=== PATIENT | male | born 1975 ===

== ENCOUNTER 2024-12-27 10:18 | Outpatient (AMB) | payer OTHER, SELFPAY ==
--- NOTE | 2024-12-27 10:48 | A.OFFVIS_ITS ---
VS Expanded 12/27/24 18:13 Height 4 ft 11 in Weight 100 lb 1.438 oz BMI 20.2 Intake Visit Reasons: Gastronomy tube Allergies No Known Allergies Allergy (Verified 12/28/24 13:14) Medication List - Last Reconciled 12/28/[address], LDN magnesium hydroxide (Milk of Magnesia) 30 mL feeding tube DAILY PRN Nutrition Presentation Details: Pt presents for MNT for Gtube nutritional intake assessment, concerns of chronic constipation Pt presents with sisterBerkley and niece (sister's daughter). Pt lives with them and with Pt's mother. Pt is non verbal, non ambulatory, has infantile cerebral palsy and is NPO on nutrition feeds via Gtube since 2018 d/t dysphagia. Pt's family are concerned regarding Pt's chronic constipation. Currently Pt is on Fiber Source HN 1.2 , 250ml 4x/day by bolus feeding. (Previously was on Jevity 1.2) Family reports Pt gets 8- 16 oz of additional water throughout the day) and may provide 4 oz of yogurt via Gtube ([employer]) Fam reports providing milk of magnesia 2-4 tbsp when Pt is goes 4 days without BM. Last BM on Wednesday. Fam reports Pt is currently on no meds, vitamins Pt current Ht : 59 wt: 45.4 kg No labs available at the time of this appt CURRENT FORMULA PROVIDES: 1200 calories, 15 g fiber, 54 g protein, 1300 ml water (from feeding+ additional water) Diet Assmnt Details: BS Monitoring Most Recent Diabetes Results: No Data to Display Assessment Assessment details: Not meeting estimated water needs Nutrition Needs Calculation Weight: 100 lb Estimated kcal needs (kcal/day): 1,130 (25 kcal/kg BW) Estimated protein needs (gm/day): 45 (45- 54 g/day or 1-1.2 g/kg BW) Estimated fluid needs (mls/day): 2,000 (as per Brenda Segar method) [facility] Medical History (Updated 12/28/24 @ 13:[address], LDN) Dysphagia Infantile cerebral palsy Seizure Cardiomegaly Chronic constipation Assessment & Plan Assessment & Plan (1) Feeding by G-tube: Code(s): Z93.1 - Gastrostomy status Category: Medical Plan: Pt with constipation. (2) Infantile cerebral palsy: Code(s): G80.9 - Cerebral palsy, unspecified Category: Medical (3) Chronic constipation: Code(s): K59.09 - Other constipation Category: Medical Plan Pt on feedings via Gtube with chronic constipation. Current formula provides 15 g of fiber/day and Pt is getting approximately 1300ml of water per day from feedings and additional water. Pt will benefit from increasing water by 700 ml of water per day to meet recommended water as per Brenda rowley method Patient Instructions: Recommendation: Continue FIber Source HN 1.2 , 250 ml by bolus feeding 4 times a day WATER: Flush feeding tube with 2 oz of water before and after each feeding Provide 24 oz of additional fluid throughout the day as follow (mix 4 oz of prune juice with 4 oz of water twice a day (total of 16 oz fluid) and and additional 6-8 oz of water (4 oz of kefir yogurt with 4 oz of water ( liquid yogurt, plain, no fruits/chunks,) via Gtube, remember to flush with water before and after yogurt via Gtube only feeding PCP: please monitor for nutrition labs: micronutrients: Zinc, selenium, thiamin, vitamin A, vitamin C, vitamin D, vitamin b12, electrolytes Coding Level of Care Code Nutr Indiv Intake (69876) Diagnoses Feeding by G-tube Z93.1 Infantile cerebral palsy G80.9 Chronic constipation K59.09 Time Spent (min) 40
--- OUTSIDE RECORDS SUMMARY | 2024-12-27 11:38 | XMS_ITS | Clinical Summary ---
Author Organization [address] Address [address] [place] [phone] Phone Care Team Providers Care Spot Cleaner Name Role Phone Raul Roberto MD Primary Care Provider [phone] [phone] Allergies No known active allergies Medications polyethylene glycol (MIRALAX) 17 gram packet Take 17 g by mouth daily. 4 Active incontinence pad, liner, disp pad INCONTINENCE SUPPLY DISPOSABLE (DISPOSABLE UNDERPADS 30 X36 ) MISC To use for incontience #8 times daily Dx:Patient Active Problem List: Infantile cerebral palsy ([facility]) [G80.9] Urinary incontinence [R32] Seizures ([facility]) [R56.9] Gastrostomy tube in place ([facility]) [Z93.1] 3 Active cefuroxime (CEFTIN) 500 mg tablet Take 1 tablet (500 mg total) by mouth 2 (two) times a day. 5 Active bisacodyL (DULCOLAX) 5 mg EC tablet Take 2 tablets by mouth right before beginning bowel prep. See instructions provided by the office 2 tablet 5 Active polyethylene glycol (Golytely) 236-22.74-6.74 -5.86 gram solution Take 4L by mouth once for one dose. May substitue any PEG. Starting today administered via G-tube, 8oz glasses at your own pace until you complete the gallon to help with constipation. 4000 mL 5 Active lactose-reduced food with fibr (Jevity 1.2 Campbell) 0.06 gram-1.2 kcal/mL liquidIndicatio ns:Dysphagia, unspecified type,Infantile cerebral palsy ([facility] V24, [facility] V28),Gastrostom y tube in place ([facility] V24, [facility] V28),Seizures ([facility] V24, [facility] V28) Jentive 1.2 Campbell Via Gtube8 oz by Per G Tube route 5 times daily. Dx: G80.9, Z93.1, #3 cases per month / indefinite use Wt 90 lbs. Ht 51 5 Active lactulose (CHRONULAC) solution Take 30 mL (20 g total) via g-tube 2 (two) times a day. 5400 mL 5 025 Active Problems Problem Noted Date Diagnosed Date Cardiomegaly 04/14/2023 Overview (04/17/2024): ON XRAY Gastrostomy tube in place [place] [place] [facility] 05/06/2018 Overview (04/17/2024): Gastrostomy tube placed surgically at the [facility] 03/18/2018. Assessment & Plan (09/28/2024 2:49 PM EDT): Emergent referral to nutrition services placed to help with feeding with the G- tube. Orders: Ambulatory referral to Nutrition Services; Future Seizures ([facility] V24, [facility] V28) 03/08/2018 Overview (04/17/2024): EEG 02/2018 at [facility] Abnormal TSH 07/23/2015 Constipation 07/13/2009 Overview (04/17/2024): IMO update Assessment & Plan (09/28/2024 2:49 PM EDT): Up-to-date with his follow-up with GI. Continue lactulose. Urinary incontinence 03/07/2007 Dysphagia 11/06/2005 Overview (04/17/2024): 07/27 silent aspiration. 12/29/2018: barium swallow---trace silent aspiration. Infantile cerebral palsy (CMS/[facility] V24, CMS/[facility] V 28) 06/09/2005 Assessment & Plan (09/28/2024 2:49 PM EDT): I have referred the patient to neurology. Advised patient's sister to keep appointment. Orders: Ambulatory referral to Neurology; Future Encounters Date Type Department Care Team Description 12/25/2024 [facility] [address] [place], [place] [address] [place] [address] Raul Roberto MD Fitting for DME 12/08/2024 [facility] [address] [place], [place] [address] [address] Raul Roberto MD DME Request ([place] ) 11/17/2024 [facility] [place] [address] Raul Roberto MD Fitting for DME ([place] / DME REQUEST previous 08-23-24 expires 09-05-25) 11/13/2024 [facility] [address] [place], [place] [address] [place] [address] Raul Roberto MD Forms/questionnaires (Clinical Team Report) 11/07/2024 [facility] [place] [address] Raul Roberto MD Referral 11/03/2024 Telephone [facility] [place] [address] Raul Roberto MD Fitting for DME 10/31/2024 2:00 PM EDT Consult General Surgery - [place] [address] [place] [address] Mo Dunbar D, DO Leg mass, right 10/25/2024 12:47 PM EDT - 10/25/2024 11:59 PM EDT Hospital Encounter Ultrasound - [facility] [address] [place], [place] [phone] Localized swelling, mass, or lump of right lower extremity Discharge Disposition: Home or Self Care 10/17/2024 Telephone Gastroenterology - [place] [address] [place] [address] Didi Valencia PA 10/17/2024 Telephone Internal Medicine - [facility] [address] [place], [place] [phone] Raul Roberto MD Referral 10/16/2024 11:26 AM EDT - 10/16/2024 11:59 PM EDT Hospital Encounter Xray - [facility] [address] [place], [place] [phone] Constipation, unspecified constipation type Discharge Disposition: Home or Self Care 10/16/2024 Telephone Gastroenterology - [place] [address] [place] [address] Brandi Dale, [place] provider call back 10/04/2024 Telephone Internal Medicine - [facility] [address] [place], [place] [phone] Raul Roberto MD 10/04/2024 Telephone Internal Medicine - [facility] [address] [place], [place] [phone] Raul Roberto MD Referral (Returning call to [place]) 10/02/2024 Telephone Internal Medicine - [facility] [address] [place], [place] [phone] Raul Roberto MD Referral 10/02/2024 Telephone Internal Medicine - [facility] [address] [place], [place] [phone] Raul Roberto MD Fitting for DME 09/28/2024 2:15 PM EDT Office Visit Internal Medicine - [facility] [address] [facility] [place] [phone] Raul Roberto MD Infantile cerebral palsy (CMS/HCC V24, CMS/HCC V28) (Primary Dx); Gastrostomy tube in place (CMS/HCC V24, CMS/HCC V28); Constipation, unspecified constipation type; Subclinical hypothyroidism; Localized swelling, mass, or lump of right lower extremity 09/26/2024 9:20 AM EDT Consult Gastroenterology - [place] [address] [place] [address] Brandi Dale NP Chronic idiopathic constipation (Primary Dx); Colonoscopy refused from Last 3 Months Immunizations Name Administration Dates Next Due H1N1 Inj Preservative Free 09/20/2009 Influenza Quadravalent, MDCK , 0.5ml, with preservative (Flucelvax) 6mo and older 05/14/2017 Influenza trivalent, with pr eservative (Fluzone; Afluria) 6mo and older 05/15/2016,05/18/2013 [email or web address] SARS-CoV-2 COVID-19, mRNA, LNP-S, preservative free 02/07/2022,08/30/2021,08/09/2021 Tdap Tetanus diptheria acell ular pertussis (Boostrix; Adacel) 7yo and older 04/10/2024,05/18/2013 Surgical History Surgery Date Site/Laterality Comments OTHER SURGICAL HISTORY 03/18/2018 PROCEDURE: PLACEMENT OF GASTROSTOMY TUBE; COMMENT: Placed surgically at [facility]. Medical History Medical History Date Comments Infantile cerebral palsy, unspecified 06/09/2005 DX:Infantile cerebral palsy, unspecified Abnormal TSH 07/23/2015 DX:Abnormal TSH Gastrostomy tube in place ([facility] MS/HCC V24, CMS/HCC V28) 05/06/2018 DX:Gastrostomy tube in place ([facility]); COMMENT: Gastrostomy tube placed surgically at the [facility] 03/18/2018. Family History Medical History Relation Name Comments Coronary artery disease Father Hyperlipidemia Father Hyperlipidemia Mother Hypertension Mother Relation Name Status Comments Brother Alive BOTH SIBLEINGS HEATLHY Father Alive Mother Alive Sister Alive Social History Tobacco Use Types Packs/Day Years Used Date Smoking Tobacco: Never Smokeless Tobacco: Never Tobacco Cessation:Counseling Given: Not Answered Alcohol Use Standard Drinks/Week Comments No 0 (1 standard drink = 0.6 oz pur e alcohol) Sex and Gender Information Value Date Recorded Sex Assigned at Not on file Legal Sex Male 4:56 AM EST Gender Identity Not on file Sexual Orientation Not on file Obstetrics History Last Filed Vital Signs Vital Sign Reading Time Taken Comments Blood Pressure 114/64 09/28/2024 2:05 PM EDT Pulse 100 09/28/2024 2:05 PM EDT Temperature 36.1 ??C (96.9 ??F) 10/31/2024 10:47 AM E DT Respiratory Rate - - Oxygen Saturation - - Inhaled Oxygen Concentration - - Weight 45.4 kg (100 lb) 10/31/2024 10:47 AM EDT Height 149.9 cm (4' 11 ) 10/31/2024 10:47 AM EDT Body Mass Index 20.2 10/31/2024 10:47 AM EDT Plan of Treatment Upcoming Encounters Date Type Department Care Team (Late st Contact Info) Description 02/19/2025 2:30 PM EDT Office Visit Internal Medicine - [address] [phone] Raul Roberto MD [address] [place] [address] Health Maintenance Due Date Last Done Comments Hepatitis B Vaccines (1 of 3 - 19+ 3-dose series) 1996 Colorectal Cancer Screening: Colonoscopy 06/27/2022 Depression Screening 06/27/2022 HIV Screening 06/27/2022 Hepatitis C Screening 06/27/2022 Social Influencers of Health Screening 06/27/2022 COVID-19 Vaccine ( season) 2024 02/07/2022, 08/30/2021, 08/09/2021 Cholesterol Screening (Lipid Panel) 04/10/2029 04/10/2024, 04/10/2024 DTaP,Tdap,and Td Vaccines (3 - Td or Tdap) 04/10/2034 04/10/2024, 05/18/2013 Influenza Vaccine Completed 07/30/2024, , 05/14/2017, Additional history exists HIB Vaccines Aged Out No longer eligi ble based on patient's age to complete this topic HPV Vaccines Aged Out No longer eligi ble based on patient's age to complete this topic Hepatitis A Vaccines Aged Out No long er eligible based on patient's age to complete this topic IPV Vaccines Aged Out No longer eligi ble based on patient's age to complete this topic MMR Vaccines Aged Out No longer eligi ble based on patient's age to complete this topic Meningococcal ACWY Vaccine Aged Out N o longer eligible based on patient's age to complete this topic Meningococcal B Vaccine Aged Out No l onger eligible based on patient's age to complete this topic Pneumococcal Vaccine: Pediatrics (0 to 5 Years) and At-Risk Patients (6 to 64 Years) Aged Out No longer eligible based on patient's age to complete this topic RSV Immunization Patients Under 20 months Aged Out No longer eligible based on patient's age to complete this topic Varicella Vaccines Aged Out No longer eligible based on patient's age to complete this topic Procedures Procedure Name Priority Date/Time Associated Diagnosis Comments US EXTREMITY NONVASCULAR LIMITED RIGHT Routine 10/25/2024 1:29 PM EDT Localized swelling, mass, or lump of right lower extremity XR ABDOMEN 1 VIEW Routine 10/16/2024 11: 39 AM EDT Constipation, unspecified constipation type LIPID PANEL Routine 04/10/2024 from Last 3 Months or Most Recently Relevant to Health Maintenance Results * US Extremity Nonvascular Limited Right (10/25/2024 1:29 PM EDT) Anatomical Region Laterality Modality Extremity Right Ultrasound 10/25/2024 4:47 PM EDT Impressions 10/25/2024 4:48 PM EDT 2.1 x 2.4 x 1.2 cm solid mass corresponding to the palpable area. Lipoma is in the differential. -------- FINAL REPORT -------- Dictated By: Ximena Cervantes Dictated Date: 10/25/2024 16:47 ET Assigned Physician: Ximena Cervantes Reviewed and Electronically Signed By: Ximena Cervantes Signed Date: 10/25/2024 16:48 ET Workstation ID: [id number] Transcribed By: Self Edit Transcribed Date: 10/25/2024 16:47 ET Narrative 10/25/2024 4:48 PM EDT US EXTREMITY NONVASCULAR LIMITED RIGHT SONO SOFT TISSUE HISTORY: Right leg lump. PRIORS: None. FINDINGS: ??Ultrasound evaluation of the palpable area indicated by the patient in the right lateral thigh was performed. There is a 2.1 x 2.4 x 1.2 cm echogenic mass superficially located and corresponding to the palpable area. Procedure Note Ximena Cervantes MD - 10/25/2024 US EXTREMITY NONVASCULAR LIMITED RIGHT SONO SOFT TISSUE HISTORY: Right leg lump. PRIORS: None. FINDINGS: Ultrasound evaluation of the palpable area indicated by thepatient in the right lateral thigh was performed. There is a 2.1 x 2.4 x 1.2 cm echogenic mass superficially located andcorresponding to the palpable area. IMPRESSION: 2.1 x 2.4 x 1.2 cm solid mass corresponding to the palpable area. Lipomais in the differential. -------- FINAL REPORT -------- Dictated By: Ximena Cervantes Dictated Date: 10/25/2024 16:47 ET Assigned Physician: Ximena Cervantes Reviewed and Electronically Signed By: Ximena Cervantes Signed Date: 10/25/2024 16:48 ET Workstation ID: [id number] Transcribed By: Self Edit Transcribed Date: 10/25/2024 16:47 ET us Raul Roberto MD IMG US PROCEDURES Final R esult * XR Abdomen 1 View (10/16/2024 11:39 AM EDT) Anatomical Region Laterality Modality Body Radiographic Jailene ging 10/16/2024 6:38 PM EDT Impressions 10/16/2024 6:48 PM EDT Large colonic stool volume with a large amount distending the rectum. ?? POS - [id number] -------- FINAL REPORT -------- Dictated By: Ignacia Doe Dictated Date: 10/16/2024 18:38 ET Assigned Physician: Ignacia Doe Reviewed and Electronically Signed By: Ignacia Doe Signed Date: 10/16/2024 18:48 ET Workstation ID: [id number] Transcribed By: Self Edit Transcribed Date: 10/16/2024 18:38 ET Narrative 10/16/2024 6:48 PM EDT EXAM: Abdominal x-ray HISTORY: Severe constipation. COMPARISON: None FINDINGS: Supine AP view of the abdomen performed. ??Large volume of stool in the colon including a large amount of dense stool distending the rectum which may indicate fecal impaction. ??No small bowel dilatation. ??Gastrostomy tube present in the upper abdomen. ??No abdominal stones of concern. ??No destructive bone lesion. Procedure Note Ignacia Doe MD - 10/16/2024 EXAM: Abdominal x-ray HISTORY: Severe constipation. COMPARISON: None FINDINGS: Supine AP view of the abdomen performed. Large volume of stool in thecolon including a large amount of dense stool distending the rectum whichmay indicate fecal impaction. No small bowel dilatation. Gastrostomytube present in the upper abdomen. No abdominal stones of concern. Nodestructive bone lesion. IMPRESSION: Large colonic stool volume with a large amount distending the rectum. POS - [id number] -------- FINAL REPORT -------- Dictated By: Ignacia Doe Dictated Date: 10/16/2024 18:38 ET Assigned Physician: Ignacia Doe Reviewed and Electronically Signed By: Ignacia Doe Signed Date: 10/16/2024 18:48 ET Workstation ID: [id number] Transcribed By: Self Edit Transcribed Date: 10/16/2024 18:38 ET Didi LU IMG XR PROCEDURES Final Resul t * (ABNORMAL) Lipid panel (04/10/2024) LDL/HDL Ratio 4 0 - 4 Triglycerides 115 0 - 150 mg/dL Cholesterol 192 0 - 200 mg/dL HDL 44 >=40 mg/dL LDL Cholesterol 125(A) 0 - 100 mg/dL Blood Venous blood specimen / Unknown Historical Provider LAB BLOOD ORDERABLES Lorena rae Result from Last 3 Months or Most Recently Relevant to Health Maintenance Insurance [employer] Care Teams Spot Cleaner Relationship Specialty Start Date End Date Raul Roberto MD [address] [place] [phone] PCP - General Internal Medicine 06/06/20
[2024-12-27 18:13] VITALS: BMI 20.2
== END 2024-12-27 11:19 | disposition home or self-care (01) ==
PROVIDERS: PCP Internal Medicine; Visit Provider Dietitian, Registered
DX: Z93.1 Gastrostomy status (principal); G80.9 Cerebral palsy, unspecified; K59.09 Other constipation

== ENCOUNTER → 2024-12-27 10:18 | Outpatient (BNVA) | payer OTHER, SELFPAY | PROVIDERS: PCP Internal Medicine; Visit Provider Dietitian, Registered | DX: K59.09 Other constipation (principal); G80.8 Other cerebral palsy; Z93.1 Gastrostomy status | CPT/HCPCS: 97802 ==

== ENCOUNTER 2025-01-24 10:16 | Outpatient (AMB) | payer OTHER, SELFPAY ==
--- NOTE | 2025-01-24 10:16 | MHC.AMNUTRGE ---
Intake Visit Reasons: gtube fluid intake Allergies No Known Allergies Allergy (Verified 12/28/24 13:14) Nutrition Presentation Details: This is MNT f/u via TV related to chronic constipation This is via TV related to hydration recommendations Spoke with sister Berkley BRISCOE Pt has cerebral palsy, NPO on Fiber source HN 1.2, 250 ml by bolus feeding 4 time a a day Reports increasing in fluid by flushing with 2 oz of water before and after feedings Has not tried prune juice since in the past they tried prune juice and did not see any improvement in bowel movements Pt is getting Enulose 60 ml twice a day (reports MD recommended to increase to 90 ml but is concerned that this may be too much. [facility] Medical History (Updated 02/19/25 @ 13:[address], LDN) Dysphagia Infantile cerebral palsy Seizure Cardiomegaly Chronic constipation Telehealth Telehealth Telehealth Platform: Telephone Location of provider rendering services: practice address Location of patient: address on file Patient Identification confirmed using: Name, : Yes Telehealth method: voice only Patient verbally consented to treatment: Yes Patient verbally consented to billing insurance company: Yes Patient informed of any privacy concerns related to visit: Yes Minutes spent on Phone/Video with Pt.: 25 Assessment & Plan Assessment & Plan (1) Feeding by G-tube: Comment: with chronic constipation Code(s): Z93.1 - Gastrostomy status Category: Medical Plan: Recommend increasing fluids to meet estimated needs Weight: 100 lb Estimated kcal needs (kcal/day): 1,130 (25 kcal/kg BW) Estimated protein needs (gm/day): 45 (45- 54 g/day or 1-1.2 g/kg BW) Estimated fluid needs (mls/day): 2,000 (as per Brenda Segar method) Patient Instructions: Continue FIber Source HN 1.2 , 250 ml by bolus feeding 4 times a day WATER: Flush feeding tube with 2 oz of water before and after each feeding Provide 24 oz of fluid throughout the day as follow (mix 4 oz of prune juice with 4 oz of water twice a day (total of 16 oz fluid) and an additional 6-8 oz of water (4 oz of kefir yogurt with 4 oz of water ( liquid yogurt, plain, no fruits/chunks,) via Gtube, remember to flush with water before and after yogurt via Gtube only Follow doctors recommendations regarding enulose/lactulose dosages, lactulose can help with softening the stools which can help with softening bowels Coding Level of Care Code Nutr Indiv Subseq (69638) Diagnoses Feeding by G-tube Z93.1 Time Spent (min) 25
--- OUTSIDE RECORDS SUMMARY | 2025-01-24 11:04 | XMS_ITS | Encounter Summary ---
Author Organization [facility] Address [address] [place] [address] Care Team Providers Care Embroidery Operator Name Role Phone Raul Roberto MD Primary Care Provider [phone] [phone] Encounter Details Date Type Department Care Team (Late Contact Info) Description 01/22/2025 Telephone Internal Medicine - [address] [phone] Raul Roberto MD [address] [place] [address] Social History Tobacco Use Types Packs/Day Years Used Date Smoking Tobacco: Never Smokeless Tobacco: Never Alcohol Use Standard Drinks/Week Comments No 0 (1 standard drink = 0.6 oz pur e alcohol) Sex and Gender Information Value Date Recorded Sex Assigned at Not on file Legal Sex Male 4:56 AM EST Gender Identity Not on file Sexual Orientation Not on file documented as of this encounter Plan of Treatment Upcoming Encounters Date Type Department Care Team (Late Contact Info) Description 02/19/2025 2:30 PM EDT Office Visit Internal Medicine - [address] [phone] Raul Roberto MD [address] [place] [address] 06/01/2025 9:20 AM EST Office Visit [facility] [address] [place] [address] Tony El MD [address] [place] [address] [address] [place] [address] documented as of this encounter Visit Diagnoses Not on filedocumented in this encounter Care Teams Embroidery Operator Relationship Specialty Start Date End Date Raul Roberto MD [address] [place] [address] PCP - General Internal Medicine 06/06/20 documented as of this encounter
== END 2025-01-24 10:37 | disposition home or self-care (01) ==
LOC: HO.ENCR 10:17
PROVIDERS: PCP Internal Medicine; Visit Provider Dietitian, Registered
DX: Z93.1 Gastrostomy status (principal)

== ENCOUNTER → 2025-01-24 10:16 | Outpatient (BNVA) | payer OTHER, SELFPAY | PROVIDERS: PCP Internal Medicine; Visit Provider Dietitian, Registered | DX: Z93.1 Gastrostomy status (principal); K59.04 Chronic idiopathic constipation | CPT/HCPCS: 97803 ==

== ENCOUNTER 2025-02-21 10:27 | Outpatient (AMB) | payer OTHER, SELFPAY ==
--- OUTSIDE RECORDS SUMMARY | 2025-02-19 07:54 | XMS_ITS | Encounter Summary ---
Author Organization [facility] Address [address] [place] [address] Care Team Providers Care Physician Advisor Name Role Phone Raul Roberto MD Primary Care Provider [phone] Reason for Referral * Imaging (Routine) - Authorized Specialty Diagnoses / Procedures Referred By Contac t Referred To Contact Radiology Diagnoses Gastrostomy tube in place (CMS/HCC V24, CMS/HCC V28) Procedures IR Replace G-Tube Perc w Fluoro Brandi Dale NP [address] [address] Phone: tel: fax: [facility] Interventional Radiology [address] [place] [phone] Phone: tel: Referral ID Status Reason Start Date Expiration Date V isits Requested Visits Authorized [id number] Authorized 01/29/2025 01/29/2026 1 1 Reason for Visit * Imaging (Routine) - Authorized Specialty Diagnoses / Procedures Referred By Contac t Referred To Contact Radiology Diagnoses Gastrostomy tube in place (CMS/HCC V24, CMS/HCC V28) Procedures IR Replace G-Tube Perc w Fluoro Brandi Dale NP [address] [address] Phone: tel: fax: [facility] Interventional Radiology [address] [place] [address] Phone: tel: Referral ID Status Reason Start Date Expiration Date V isits Requested Visits Authorized [id number] Authorized 01/29/2025 01/29/2026 1 1 Encounter Details Date Type Department Care Team (Latest Contact Info) Description 02/19/2025 7:54 AM EDT - 02/19/2025 11:59 PM EDT Hospital Encounter [facility] Interventional Radiology [address] [place] [address] [address] ([facility] V24, [facility] V28) Discharge Disposition: Home or Self Care Social History Tobacco Use Types Packs/Day Years [...] on file documented as of this encounter Medications at Time of Discharge bisacodyL (DULCOLAX) 5 mg EC tablet Take 2 tablets by mouth right before beginning bowel prep. See instructions provided by the office 2 tablet 10/11/2024 incontinence pad, liner, disp pad INCONTINENCE SUPPLY DISPOSABLE (DISPOSABLE UNDERPADS 30 X36 ) MISC To use for incontience #8 times daily Dx:Patient Active Problem List: Infantile cerebral palsy ([facility]) [G80.9] Urinary incontinence [R32] Seizures ([facility]) [R56.9] Gastrostomy tube in place ([facility]) [Z93.1] 10/28/2022 lactose-reduced food with fibr (Jevity 1.2 Campbell) 0.06 gram-1.2 kcal/mL liquidIndications :Dysphagia, unspecified type,Infantile cerebral palsy ([facility] V24, [facility] V28),Gastrostomy tube in place ([facility] V24, [facility] V28),Seizures ([facility] V24, [facility] V28) Jentive 1.2 Campbell Via Gtube8 oz by Per G Tube route 5 times daily. Dx: G80.9, Z93.1, #3 cases per month / indefinite use Wt 90 lbs. Ht 51 11/21/2024 polyethylene glycol (Golytely) 236-22.74-6.74 -5.86 gram solution Take 4L by mouth once for one dose. May substitue any PEG. Starting today administered via G-tube, 8oz glasses at your own pace until you complete the gallon to help with constipation. 4000 mL 10/17/2024 documented as of this encounter Discharge Disposition Disposition Code Departure Means Destination Home or Self Care documented in this encounter Plan of Treatment Upcoming Encounters Date Type Department Care Team (Late st Contact Info) Description 06/01/2025 9:20 AM EST Office Visit [facility] Cardiology [facility] [address] [place] [address] Dr Wagner [address] [place] [address] Tony El MD [address] [place] [address] Dr Lewis [address] [place] [address] documented as of this encounter Procedures Procedure Name Priority Date/Time Associated Diagnosis Comments IR REPLACE G-TUBE PERC W FLUORO Routine 02/19/2025 8:47 AM EDT Gastrostomy tube in place ([facility] V24, [facility] V28) documented in this encounter Results * IR Replace G-Tube Perc w Fluoro (02/19/2025 8:47 AM EDT) Anatomical Region Laterality Modality N/A Interventional R adiology 02/19/2025 11:3 5 AM EDT Impressions 02/19/2025 11:36 AM EDT Gastrostomy tube exchange. -------- FINAL REPORT -------- Dictated By: Li Wells Dictated Date: 02/19/2025 11:35 ET Assigned Physician: Li Wells Reviewed and Electronically Signed By: Li Wells Signed Date: 02/19/2025 11:36 ET Workstation ID: [id number] Transcribed By: Self Edit Transcribed Date: 02/19/2025 11:35 ET Narrative 02/19/2025 11:36 AM EDT Indication: Chronic indwelling gastrostomy tube, routine replacement Informed consent obtained from the patient's family. Procedure: Gastric tube and surrounding skin prepped and draped sterilely. Indwelling retention balloon aspirated and 18 Beninese gastrostomy tube removed over short Amplatz wire. New 18 Beninese gastrostomy tube advanced over the wire and through the ostomy site and into the stomach. Retention balloon inflated with 20 mL of bacteriostatic water. Contrast injection confirmed intragastric location of tube. Spot image obtained. Total patient dose (air kerma): 1 mGy FINDINGS: Image of the abdomen following gastrostomy tube placement demonstrates catheter positioned in the central portion abdomen with the patient turned towards the right side. Procedure Note Li Wells MD - 02/19/2025 Indication: Chronic indwelling gastrostomy tube, routine replacement Informed consent obtained from the patient's family. Procedure: Gastric tube and surrounding skin prepped and draped sterilely.Indwelling retention balloon aspirated and 18 Beninese gastrostomy tuberemoved over short Amplatz wire. New 18 Beninese gastrostomy tube advancedover the wire and through the ostomy site and into the stomach. Retentionballoon inflated with 20 mL of bacteriostatic water. Contrast injectionconfirmed intragastric location of tube. Spot image obtained. Total patient dose (air kerma): 1 mGy FINDINGS: Image of the abdomen following gastrostomy tube placementdemonstrates catheter positioned in the central portion abdomen with thepatient turned towards the right side. IMPRESSION: Gastrostomy tube exchange. -------- FINAL REPORT -------- Dictated By: Li Wells Dictated Date: 02/19/2025 11:35 ET Assigned Physician: Li Wells Reviewed and Electronically Signed By: Li Wells Signed Date: 02/19/2025 11:36 ET Workstation ID: [id number] Transcribed By: Self Edit Transcribed Date: 02/19/2025 11:35 ET Brandi Dale NP IMG IR PROCEDURES Final Result documented in this encounter Visit Diagnoses Diagnosis Gastrostomy tube in place ([facility] V24, [facility] V28) documented in this encounter Care Teams Physician Advisor Relationship Specialty Start Date End Date Raul Roberto MD [address] [place] [id number] PCP - General Internal Medicine 06/06/20 documented as of this encounter
--- NOTE | 2025-02-21 10:48 | MHC.AMNUTRGE ---
Intake Visit Reasons: gtube Allergies No Known Allergies Allergy (Verified 12/28/24 13:14) Nutrition Presentation Details: Pt presents for MNT f/u for Gtube nutritional intake assessment with concerns of chronic constipation Pt presents with sister, Berkley and niece (sister's daughter). Pt lives with his mother.. Pt is non verbal, non ambulatory, has infantile cerebral palsy and is NPO on nutrition feeds via Gtube since 2018 d/t dysphagia. Pt was previously on Jevity 1.2 (prior to 10/2024) and was switched to Fiber source HN 1.2 due to constipation. Pt is currently on Fibersource HN 1.2, 250 ml 4 times a day by bolus feeding Pt also getting 4 oz of kefir plain with 4 oz water , no fruits/chunks via Gtube Water Flushes: 1-2 oz water before and after feedings (8x/day : 8-16 oz ) WATER: 16-24 oz of water throughout the day Sister reports, Pt is having daily bowel movement, with flushes/fluids recommended and also gets 45 ml of enulose daily NEW CONCERN: Sister reports noticing Pt may become nauseous after first feeding of the day . This has happened twice in the last 3 days. Also reports the feeding tube was changed 3 days ago. Pt is getting feeds by bolus via syringe. They report, Pt had a feeding pump years ago but the family did not understand how to use the pump therefore the family returned the pump. Pt most recent Ht/wt Ht : 59 wt: 45.8 kg No labs available at the time of this appt CURRENT FORMULA PROVIDES: 1200 calories, 15 g fiber, 54 g protein, 1300 ml water (from feeding+ additional water) [facility] Medical History (Updated 02/22/25 @ 12:54 by Kena Soto, RD, LDN) Dysphagia Infantile cerebral palsy Seizure Cardiomegaly Chronic constipation Assessment & Plan Assessment & Plan (1) Feeding by G-tube: Comment: with chronic constipation - per fam reports constipation appears to resolve Code(s): Z93.1 - Gastrostomy status Category: Medical Plan: Weight: 100 lb Estimated kcal needs (kcal/day): 1,130 (25 kcal/kg BW) Estimated protein needs (gm/day): 45 (45- 54 g/day or 1-1.2 g/kg BW) Estimated fluid needs (mls/day): 2,000 (as per [place] method) Continue: Fibersource HN 1.2, 250 ml 4 times a day by bolus feeding and 1-2 oz of water flushes before and after feedings (8-16 oz/day) 4 oz of kefir plain with 4 oz water , no fruits/chunks via Gtube Additional WATER: 16-24 oz of water throughout the day continue enulose as per the doctor recommendation 45 ml once day REGARDING NAUSEA: Reduce the rate of feeding by waiting 15 minutes after every 60 ml feeding by syringe. Contact the doctor if nausea continues and also if Pt is vomiting for further assessment PCP: May recommend prescribing a feeding pump. The family will need training on how to use the feeding pump prescribed Patient Instructions: Coding Level of Care Code Nutr Indiv Subseq (79274) Diagnoses Feeding by G-tube Z93.1 Time Spent (min) 30
--- OUTSIDE RECORDS SUMMARY | 2025-02-21 11:07 | XMS_ITS ---
Author Name [facility] Organization Unknown Care Team Organization Name Specialty Phone Email Start Date End [facility] Raul Roberto Primary Care 05/26/2022 03/06/2024
== END 2025-02-21 11:20 | disposition home or self-care (01) ==
LOC: HO.ENCR 10:28
PROVIDERS: PCP Internal Medicine; Visit Provider Dietitian, Registered
DX: Z93.1 Gastrostomy status (principal)

== ENCOUNTER → 2025-02-21 10:27 | Outpatient (BNVA) | payer OTHER, SELFPAY | PROVIDERS: PCP Internal Medicine; Visit Provider Dietitian, Registered | DX: Z93.1 Gastrostomy status (principal) | CPT/HCPCS: 97803 ==